=== PATIENT | female | born 1925 | race Caucasian/White ===

== ENCOUNTER 2017-07-28 09:57 | Emergency (ER) | payer MEDICARE, BC ==
[~2017-07-28] VITALS: Ht 157.5 cm; Wt 75.0 kg
[~2017-07-28 09:57] MED LIST: AMLO5TAB4 PO; DONE10TA11 PO; HYDR-523 PO; LOVA40TA73 PO; MAGN400C PO; MEMA10TA2 PO; OCD PO; [UNRECOGNIZED DRUG - OTHER]
[2017-07-28 11:08] LABS: BASOPHILS % 0.6 % (0.0-2.0); EOSINOPHILS % 5.1 % (0.0-5.0); HEMATOCRIT. 41.3 % (36.0-48.0); HEMOGLOBIN. 13.7 g/dL (12.0-16.0); LYMPHOCYTES % 11.8 % (20.0-50.0); MEAN CORPUSCULAR HEMOGLOBIN 29.4 pg (28.0-32.0); MEAN CORPUSCULAR VOLUME 88.8 fL (81.0-99.0); MEAN PLATELET VOLUME 7.8 fl (7.4-10.4); MONOCYTES % 10.8 % (2.0-8.0); NEUTROPHILS % 71.7 % (40.0-76.0); PLATELET 262 x1000/uL (130-400); RED BLOOD CELL COUNT 4.65 mill/uL (4.2-5.4); RED CELL DISTRIBUTION WIDTH 13.6 % (11.6-14.6)
[2017-07-28] MEDS: ACETAMINOPHEN 325MG TABLET PO ONE (11:09)
[2017-07-28 11:17] LABS: INR 1.1; PROTHROMBIN TIME 11.1 sec (9.4-11.6)
[2017-07-28 11:25] LABS: CARBON DIOXIDE 31 mEq/L (21-32); CHLORIDE 107 mEq/L (98-107); CREATINE KINASE 26 IU/L (26-192); TROPONIN I < 0.02 ng/mL (0.00-0.04)
[2017-07-28 11:55] VITALS: BP 118/69
== END 2017-07-28 12:16 | disposition home or self-care (01) ==
LOC: ER 09:57
DX: M79.651 Pain in right thigh (principal); E78.00 Pure hypercholesterolemia, unspecified; I10 Essential (primary) hypertension; Z86.718 Personal history of other venous thrombosis and embolism; Z88.0 Allergy status to penicillin; Z90.89 Acquired absence of other organs; Z98.890 Other specified postprocedural states
CPT/HCPCS: 36415; 80053; 82550; 84484; 85025; 85610; 85730; 93970; 99285